=== PATIENT | male | born 1970 | race Caucasian/White ===

== ENCOUNTER 2020-01-11 11:33 | Emergency (ER) | payer OTHER ==
--- NOTE | 2020-01-11 12:38 | ED ---
Upper Extremity Pain - History of Current Complaint Chief Complaint: EDExtremityUpper Stated Complaint: LEFT HAND INJURY PER PT Time Seen by Provider: 01/11/20 12:33 Hx Obtained From: Patient - Allergies/Home Medications Allergies/Adverse Reactions: Allergies Allergy/AdvReac Type Severity Reaction Status Date / Time No Known Allergies Allergy Verified 01/11/20 11:42 PMH/Surg Hx/FS Hx/Imm Hx Previously Healthy: Yes Infectious Disease History: No Infectious Disease History: Denies: Traveled Outside the [place] in Last 30 Days Review of Systems All Other Systems Reviewed And Are Negative: Yes Physical Exam Triage Information Reviewed: Yes Vital Signs On Initial Exam: Initial Vitals Temp Pulse Resp BP Pulse Ox 98.8 F 68 18 160/91 100 01/11/20 11:39 01/11/20 11:39 01/11/20 11:39 01/11/20 11:39 01/11/20 11:39 Vital Signs Reviewed: Yes Procedures - Sedation Patient Received Moderate/Deep Sedation with Procedure: No Diagnostics - Vital Signs Vital Signs Temp Pulse Resp BP Pulse Ox 01/11/20 11:39 98.8 F 68 18 160/91 100 - Laboratory Lab Statement: Any lab studies that have been ordered have been reviewed, and results considered in the medical decision making process. Discharge ED - Discharge Plan Referrals: [facility] [Outside] - Attestation Statements Document Initiated by Scribe: Yes Documenting Scribe: Nohelia Barton Provider For Whom Scribe is Documenting (Include Credential): Jocelyne Lackey MD Scribe Attestation: Nohelia Robins, scribed for Jocelyne Lackey MD on 01/11/20 at 1237.
[2020-01-11] MEDS ORDERED: Tetan/Diph/Pertus SYR(Tdap)* 0.5 ML SYR(BOOSTRIX) use SYR contains LATEX IM ONE (12:45)
[2020-01-11] MEDS ORDERED: Ibuprofen TAB* 800 MG PO ONE (12:45)
[2020-01-11] MEDS ORDERED: Lidocaine 1% MPF ** 5 ML VIAL INJ ONE ×2 (12:46→14:12)
--- NOTE | 2020-01-11 12:47 | ED ---
Upper Extremity Pain - HPI Summary HPI Summary: Pt. is a 49 y.o male who presents to the ER for right thumb injury that occurred today. Pt. incarcerated at [facility]. Pt. states he accidentally closed large truck door on thumb. Unaware of last tetanus immunization. No past medical hx. Sxs are mild in severity. Pt. had xray at [facility] prior to arrival and disc provided. Moving thumb makes sxs worse. nothing makes sxs better. - History of Current Complaint Chief Complaint: EDExtremityUpper Stated Complaint: LEFT HAND INJURY PER PT Time Seen by Provider: 01/11/20 12:33 Hx Obtained From: Patient Mechanism Of Injury: Fall From A Standing Position - Allergies/Home Medications Allergies/Adverse Reactions: Allergies Allergy/AdvReac Type Severity Reaction Status Date / Time No Known Allergies Allergy Verified 01/11/20 11:42 PMH/Surg Hx/FS Hx/Imm Hx Previously Healthy: Yes Infectious Disease History: No Infectious Disease History: Denies: Traveled Outside the [place] in Last 30 Days - Family History Known Family History: Positive: Non-Contributory - Social History Occupation: Unemployed Lives: Detention - [facility] Alcohol Use: None Substance Use Type: Reports: None Smoking Status (MU): Light Every Day Tobacco Smoker Review of Systems Positive: Other - laceration left distal thumb All Other Systems Reviewed And Are Negative: Yes Physical Exam Triage Information Reviewed: Yes Vital Signs On Initial Exam: Initial Vitals Temp Pulse Resp BP Pulse Ox 98.8 F 68 18 160/91 100 01/11/20 11:39 01/11/20 11:39 01/11/20 11:39 01/11/20 11:39 01/11/20 11:39 Vital Signs Reviewed: Yes Appearance: Positive: Well-Appearing - Pt. sitting in chair in NAD. Correction officers present. Skin: Positive: Warm, Dry Head/Face: Positive: Normal Head/Face Inspection Eyes: Positive: Normal, EOMI Neck: Positive: Supple Musculoskeletal: Positive: Other - 4 cm laceration noted to distal left thumb. Laceration goes across very base of nail bed. Full ROM of digit. Mild active bleeding. Neurological: Positive: Normal, CN Intact II-III Psychiatric: Positive: Affect/Mood Appropriate Procedures - Sedation Patient Received Moderate/Deep Sedation with Procedure: No - Splinting Left Thumb Hand-Made Type: orthoglass Splint: thumb spica Pre-Proc Neuro Vasc Exam: normal Post-Proc Neuro Vasc Exam: normal - Laceration/Wound Repair 1 Location: upper extremity - left thumb Description: Irregular Anesthesia: Local, Digital, 1.0%, Lido Length, Depth and Shape: 4cm irregular Betadine Prep?: Yes Irrigated w/ Saline (ccs): 250 Laceration/Wound Explored: clean Closure: Single Layer Suture Type: Nylon Number of Sutures: 7 Layer Closure?: No Sterile Dressing Applied?: Yes Diagnostics - Vital Signs Vital Signs Temp Pulse Resp BP Pulse Ox 01/11/20 11:39 98.8 F 68 18 160/91 100 - Laboratory Lab Statement: Any lab studies that have been ordered have been reviewed, and results considered in the medical decision making process. Course/Dx - Course Course Of Treatment: Pt. with crush injury to left thumb. Xray from [facility] uploaded to pacs and reviewed. Appears to have distal fx. Tetanus updated. Started on keflex. Would was extensively irrigated and clean. Nailbed was repaired. Splint placed for comfort. Ortho f.u within one week. Suture removal in 14 days. Daily wound care. Keflex 500mg BID. Motrin for pain as directed. Return to ER for redness, swelling, or drianage from wound. - Diagnoses Differential Diagnosis/HQI/PQRI: Positive: Fracture (Closed), Strain, Sprain Provider Diagnoses: Open fracture, Nailbed laceration, finger Discharge ED - Sign-Out/Discharge Documenting (check all that apply): Patient Departure - Discharge Plan Condition: Improved Disposition: HOME Patient Education Materials: Laceration (ED), Thumb Fracture (ED) Referrals: [facility] [Outside] Tung Strauss MD [Medical Doctor] - Additional Instructions: Recommend seeing an orthopedic doctor within one week Daily dressing change Clean with warm soap and water daily Apply over the counter antibiotic ointment such as neosporin Ibuprofen 600mg every 6 hours for pain Recommend Keflex 500mg every 12 hours x 10 days Suture removal in 14 days Ice and elevate intermittently Return to ER for redness, swelling, drainage from wound or if concerned - Billing Disposition and Condition Condition: IMPROVED Disposition: Home - Attestation Statements Provider Attestation: I was available for consult. This patient was seen by the REBECCA. The patient was not presented to, seen by, or examined by me. -Jillian
[2020-01-11] MEDS ORDERED: Cephalexin CAP* 500 MG PO ONE (14:48)
[2020-01-11 15:14] VITALS: BP 159/94
== END 2020-01-11 15:13 | disposition home or self-care (01) ==
LOC: ED 11:33
DX: S62.502B Fracture of unspecified phalanx of left thumb, initial encounter for open fracture (principal); W23.0XXA Caught, crushed, jammed, or pinched between moving objects, initial encounter; Y92.149 Unspecified place in prison as the place of occurrence of the external cause; F17.210 Nicotine dependence, cigarettes, uncomplicated
CPT/HCPCS: 12002; 90471; 90715; 96372; 99283; A9270-GY